=== PATIENT | female | born 1930 | race Caucasian/White ===

== ENCOUNTER 2016-07-21 10:24 | Emergency (ER) | payer MEDICARE, BC ==
--- NOTE | ~2016-07-21 | US84 ---
[id number] [facility]. [facility] [address] [place], [place] [address] [id number] I MR#: [id number] #: [id number] NAME: MEHDI ROTHMAN : 1930 SEX: F STUDY DATE/TIME: 07/23/2016 15:30 UNIT: C2A ROOM: 213 STUDY DESCRIPTION: US LE Veins Complete Raman Stdy Attending Physician: Heber Deshpande M.D. Ordering Physician: Heber Deshpande M.D. Primary Care Physician: Kathya Primary Care Physician MEDICAL IMAGING REPORT This report is preliminary unless electronic signature is present EXAM Bilateral lower extremity venous Doppler date of study 07/23/2016. COMPARISON Prior ultrasound dated 10/17/2014. HISTORY Bilateral leg swelling for several years, chronic history of DVT. PROCEDURE Gillis-scale imaging, color-Doppler flow imaging, and Doppler waveform analysis. FINDINGS On the right, there is nonocclusive thrombus in the common femoral and superficial femoral and popliteal veins. The below-knee tibial veins are patent, but the peroneal vein is occluded. This is slightly improved when compared to the study of 10/17/2014. On the left, there is occlusive thrombus in the superficial femoral vein and below-knee posterior tibial vein, but the remaining left lower extremity deep and superficial veins are normal. The popliteal vein was occluded on the study of June 2014. IMPRESSION There is some occlusive and nonocclusive DVT on the right and some occlusive DVT on the left, though to some degree this is likely chronic. See above for details. Dictated by... Guzman Dwyer M.D. THIS IS AN ELECTRONICALLY VERIFIED REPORT Guzman Dwyer M.D. at 07/24/2016 10:25 AM YEHUDA/florencio TD: 07/23/2016 19:11 JOB #: [id number] MEDICAL IMAGING REPORT Page 1 of 1 COPY
--- NOTE | ~2016-07-21 | DS ---
Unit #: [id number] #: [id number] Patient: MEHDI ROTHMAN [id number] [address] [place], [place] [address] [id number] I MR#: [id number] NAME: MEHDI ROTHMAN. ROOM: 213 Age: 86 Sex: F Admission Date: 07/23/2016 : 1930 Discharge Date: 07/27/2016 Attending Physician: Heber Deshpande M.D. Primary Care Physician: No Primary Care Physician DISCHARGE SUMMARY DISCHARGE DIAGNOSES 1. Fall. 2. Right radial neck fracture. 3. Hypertension. 4. 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 5. Atrial fibrillation. 6. Dementia. 7. Hypothyroidism. HOSPITAL COURSE The patient is an 86-year-old female who presented to [facility] after a fall. She was noted to have a right radial neck fracture on right elbow film. Ankle, foot, pelvis and CT chest imaging were negative. The patient was seen in consultation by Dr. Sullivan who felt the patient was without need for operative intervention. She was placed in a sling and physical therapy and occupational therapy were ordered. The patient did have incidental findings of DVT in both legs. These are chronic and were thought to actually be somewhat improved since studies done in 2015. Given the patient's nonoperative need and Physical Therapy's determination of the need for rehab, the patient is being discharge there now. DISCHARGE MEDICATIONS 1. Amiodarone 200 mg p.o. daily. 2. Ativan 1 mg p.o. daily p.r.n. 3. Norvasc 10 mg p.o. daily. 4. Lopressor 25 mg p.o. daily. 5. Hydrocodone and acetaminophen 5/325 one p.o. q.4 h. p.r.n. moderate to severe pain. 6. Prilosec 20 mg p.o. daily. 7. Synthroid 0.15 mg p.o. daily. 8. Cyanocobalamin 1000 mcg p.o. daily. 9. Hydralazine 50 mg p.o. b.i.d. FOLLOWUP Patient should follow up with Dr. Sullivan in 7 to 10 days. Unit #: [id number] #: [id number] Patient: STEPHANMEHDI Sequeira Dictated by... Gino Boston/kellen TD: 07/27/2016 15:06 JOB #: [id number] DISCHARGE SUMMARY Page 1 of 1 X Randolph Lerner MD X DISCHARGE SUMMARY
--- NOTE | ~2016-07-21 | HP ---
Unit #: [id number] #: [id number] Patient: MEHDI ROTHMAN [id number] [address] [place], [place] [address] [id number] I MR#: [id number] NAME: MEHDI ROTHMAN. ROOM: 213 Age: 86 Sex: F Admission Date: 07/23/2016 : 1930 Attending Physician: Heber Deshpande M.D. Primary Care Physician: No Primary Care Physician HISTORY AND PHYSICAL CHIEF COMPLAINT Fall and right elbow fracture. HISTORY OF PRESENTING ILLNESS Patient is an 86-year-old pleasant lady with a past medical history of dementia, hypertension, afib, COPD, peptic ulcer disease, who presented to [facility] emergency room from assisted living with a chief of fall. Apparently she tripped down and fell on her right side and in the [facility] emergency room initial evaluation showed her having right radial neck fracture. She did not have any rib fractures. She is pleasantly confused, unable to have a coherent conversation. She denies any chest pains, complains of having shortness of breath, denies any fever or chills, cough, cold, denies having any abdominal pain, diarrhea or dysuria. Kindly note most of the history is obtained by reviewing the records and talking to the ER physicians and nurses here. PAST MEDICAL HISTORY 1. History of hypertension. 2. Degenerative joint disease. 3. Peptic ulcer disease. 4. History of abdominal aortic aneurysm. 5. Afib. 6. History of PE and DVT, status post IVC filter placement. 7. Chronic kidney disease. 8. Anemia. 9. Urinary tract infections. 10. History of congestive heart failure with last echocardiogram in 2013 showing an EF of 50% to 55%, chronic diastolic heart failure. 11. Colonic polyps status post right hemicolectomy. 12. Total abdominal hysterectomy and bilateral salpingo-oophorectomy. 13. Cholecystectomy. 14. Appendectomy. ALLERGIES Include NSAIDs, penicillin, sulfa, codeine, aspirin, Coumadin, Lovenox, Flagyl, Dilaudid. HOME MEDICATIONS 1. Norvasc 10 mg p.o. daily. 2. Synthroid 15 mcg p.o. daily. 3. Lorazepam 1 mg daily. Unit #: [id number] #: [id number] Patient: MEHID ROTHMAN 4. Lopressor 25 mg daily. 5. Amiodarone 200 mg daily. 6. Prilosec 20 mg p.o. daily. SOCIAL HISTORY Currently she mentions she is in assisted living, denies any smoking, alcohol, per records lifelong nonsmoker, nonalcoholic. REVIEW OF SYSTEMS Complete review of systems is negative except for what is mentioned in the HPI. FAMILY HISTORY Noncontributory to the current admission. PHYSICAL EXAMINATION VITAL SIGNS: Temperature 97.4, pulse rate 62, respirations 18, blood pressure 197/94. GENERAL: Patient is alert, oriented x3, pleasantly confused. HEENT: Normocephalic and atraumatic. Oral mucosa is moist. NECK: Neck is supple. No JVD. HEART: S1, S2, irregular. CHEST: Bilateral equal air entry, clear to auscultation. ABDOMEN: Soft, nontender. EXTREMITIES: Edema in both the lower extremities. Right upper extremity in a splint. DIAGNOSTIC STUDIES LABORATORY: Glucose 104, BUN 18, creatinine 1.3, sodium 135, potassium 4.3, chloride 103, bicarb 26, bilirubin 2.4, indirect 2.1, direct 0.3. WBC 4.2 but I do not have a CBC from today. I will try to get a CBC and a urinalysis. ASSESSMENT AND PLAN 1. Fall with a right radial neck fracture: Will request orthopedic services to consult to evaluate if she needs any other intervention at this point, p.r.n. analgesics, PT and OT and monitor. 2. Hypertension: Blood pressure is poorly controlled. Will give her p.r.n. hydralazine and monitor. 3. Edema of both the lower extremities: She does have a history of deep venous thromboses in the past. Will check an ultrasound. 4. History of recurrent urinary tract infections: I will check a UA with micro and, if required, will start on antimicrobials. 5. Atrial fibrillation, rate controlled: Will monitor. 6. Dementia. 7. Hypothyroidism. 8. PT and OT. 9. garage manager consult. 10. Further recommendations per hospital course. Dictated by Heber Deshpande M.D. PS/cf Unit #: [id number] #: [id number] Patient: MEHDI ROTHMAN TD: 07/23/2016 15:18 JOB #: [id number] HISTORY AND PHYSICAL Page 1 of 1 X X HISTORY AND PHYSICAL
--- NOTE | ~2016-07-21 | CO ---
Unit #: [id number] #: [id number] Patient: MEHDI ROTHMAN [id number] [address] [place], [place] [address] [id number] I MR#: [id number] NAME: MEHDI ROTHMAN. ROOM: 213 Age: 86 Sex: F Admission Date: 07/23/2016 : 1930 Attending Physician: Heber Deshpande M.D. Primary Care Physician: Primary Care Physician No CONSULTATION REPORT HISTORY OF PRESENT ILLNESS This is an 86-year-old lady, who resides in the assisted living. She has dementia and is unable to give a good history. Evidently, she fell at the assisted living, was complaining of elbow discomfort, was brought to the emergency room at [facility] and was found to have a fracture of her right radial neck. We have been asked to provide orthopedic care for this. PAST MEDICAL HISTORY Her past medical history which is garnered from the chart because she is unable to give a good history, is one of peptic ulcer disease, hypertension, abdominal aortic aneurysm, atrial fibrillation, chronic kidney disease, anemia, history of PE from DVT, urinary tract infections, congestive heart failure. She has had colon polyps removed in the past. PAST SURGICAL HISTORY Her past surgeries include bilateral S and O with abdominal hysterectomy. She has had a cholecystectomy and an appendectomy. ALLERGIES Her allergies are multiple, they include NSAIDs, penicillin, sulfa, codeine, aspirin, Coumadin, Lovenox, Flagyl, and Dilaudid. MEDICATIONS Her medications at the assisted living include lorazepam, Synthroid, Norvasc, amiodarone, Lopressor, and Prilosec. SOCIAL HISTORY She lives in an assisted living with no history of smoking or alcohol. REVIEW OF SYSTEMS We were unable to complete review of systems because of the patient's medical condition. PHYSICAL EXAMINATION GENERAL: Her exam today reveals she is resting comfortably in bed. She is alert, but is somewhat confused. VITAL SIGNS: She is afebrile. Her pulse is 82 and her blood pressure is 116/66. EXTREMITIES: Orthopedically, her right arm is in a splint. Her hand neurovascular exam is intact. We did not remove the splint. IMPRESSION After reviewing her x-ray, she has a mildly angulated right radial neck fracture that we are going to treat nonoperatively with a sling. We will Unit #: [id number] #: [id number] Patient: MEHDI ROTHMAN have them removed the splint and reapplied the sling that is to be kept on at all times, and I will see her in the office in 7 to 10 days for repeat x-rays. Dictated by... Gino Lewis/amanda TD: 07/24/2016 19:33 JOB #: [id number] CONSULTATION REPORT Page 1 of 1 X Asim Sullivan MD X CONSULTATION REPORT
[~2016-07-21 10:24] MED LIST: ACETAMINOPHEN PO; ACETAMINOPHEN650 M1 PO; ALBUTEROL 0.5ML INH; ALPRAZOLAM; ALPRAZOLAM PO; ALPRAZOLAM0.25 MG PO; AMIODARONE PO; ATIVAN PO; CARDIZEM CD PO; CORDARONE200 M1 PO; COUMADIN PO; COUMADIN1 MG PO; DOXYCYCLINE PO; ENOXAPARIN60 MG/0.1 SQ; FERRO-TIME325 MG PO; K-DUR20 ME1 PO; K-DUR20 ME2 PO; KEFLEX500 M1 PO; LASIX; LASIX PO; LASIX20 MG PO; LEVAQUIN PO; LEVAQUIN750 M1 PO; LEVOTHROID100 MC1 PO; LEVOTHROXIN PO; LEVOTHYROXINE150 MCG PO; LEVOXYL150 MCG PO; LORAZEPAM1 MG PO; MACRODANTIN PO; METOPROLOL SUCC25 MG PO; METOPROLOL TAR25 MG PO; NORVASC10 MG PO; PACERONE PO; PACERONE100 MG PO; POTASSIUM GLUCO99 MG PO; PREDNISONE10 MG PO; PREDNISONE10 MG/DOSE PO; PRILOSEC PO; PRILOSEC20 MG PO; PYRIDIUM PO; SYNTHROID0.1 MG PO; TOPROL XL; TOPROL XL PO; VIT B-12 PO; ZESTRIL5 MG PO
[2016-07-21 10:30] LABS: URINE SOURCE CLEAN CATCH
[2016-07-21 10:35] LABS: URINE APPEARANCE CLEAR; URINE BILIRUBIN NEG (NEG); URINE BLOOD NEG (NEG); URINE COLOR YELLOW; URINE GLUCOSE NORM (NORM); URINE KETONE NEG (NEG); URINE LEUKOCYTE ESTERASE 3+ (NEG); URINE NITRATE NEG (NEG); URINE PROTEIN NEG (NEG); URINE SPECIFIC GRAVITY 1.005 (1.003-1.035); URINE UROBILINOGEN NORM (NORM)
[2016-07-21 10:35] LABS: BASOPHIL% 0.7 % (0-2.5); EOSINOPHIL# 0.1 X10e3 (0-0.7); HEMATOCRIT 40.4 % (35.0-45.0); HEMOGLOBIN 13.1 gm/dL (12.0-16.0); LYMPHOCYTE# 1.1 X10e3 (1.0-3.5); LYMPHOCYTE% 25.7 % (17.0-45.0); MEAN CELL VOLUME 95.6 FL (83-96); MEAN CORPUSCULAR HEMOGLOBIN 31.1 PG (28-34); MEAN CORPUSCULAR HGB CONC 32.5 g/dL (30-36); MEAN PLATELET VOLUME 7.4 FL (6.5-11.5); MONOCYTE# 0.4 X10e3 (0-1.0); MONOCYTE% 8.7 % (3.0-12.0); NEUTROPHIL# 2.6 X10e3 (1.5-7.1); NEUTROPHIL% 62.9 % (40-75); PLATELET COUNT 132 X10e3 (140-420); RED BLOOD COUNT 4.22 X10e (3.90-5.30); RED CELL DISTRIBUTION WIDTH 15.8 % (11.0-15.5); WHITE BLOOD COUNT 4.2 X10e3 (4.0-10.5)
[2016-07-21 10:41] LABS: DIFF IND NO
[2016-07-21 10:43] LABS: CULTURE INDICATED? YES; URBCS1 AUWI 0-2 /[HPF] (0-2); URINE BACTERIA AUWI NEG (NEGATIVE); URINE SQUAMOUS EPITHELIAL CELL OCC /[HPF]
[2016-07-21 11:00] LABS: ALBUMIN SERUM 3.8 g/dL (3.5-5.0); BILIRUBIN, DIRECT 0.3 mg/dL (0.0-0.2); BILIRUBIN,INDIRECT 2.1 mg/dL (0.0-0.9); BILIRUBIN,TOTAL 2.4 mg/dL (0.2-2.0); BUN/CREATININE RATIO 13.84; CALCIUM SERUM 9.3 mg/dL (8.4-10.2); CREATININE SERUM 1.3 mg/dL (0.6-1.4); GLOM FILT RATE Estimated 37.1 mL/min (>60); POTASSIUM 4.3 mmol/L (3.5-5.1); PROTEIN TOTAL SERUM 6.7 g/dL (6.0-8.3)
[2016-07-21] MEDS ORDERED: SYNTHROID0.05 MG PO (14:23)
[2016-07-21] MEDS ORDERED: ATIVAN PO (14:25)
[2016-07-21] MEDS ORDERED: LOPRESSOR PO (14:25)
[2016-07-21] MEDS ORDERED: AMIODARONE HCL100 MG PO (14:26)
[2016-07-21] MEDS ORDERED: PRILOSEC PO (14:26)
[2016-07-21] MEDS ORDERED: NORVASC10 MG PO (14:26)
[2016-07-24 05:45] LABS: HEMATOCRIT 41.9 % (35.0-45.0); HEMOGLOBIN 13.5 gm/dL (12.0-16.0); MEAN CELL VOLUME 96.7 FL (83-96); MEAN CORPUSCULAR HEMOGLOBIN 31.2 PG (28-34); MEAN CORPUSCULAR HGB CONC 32.2 g/dL (30-36); MEAN PLATELET VOLUME 7.8 FL (6.5-11.5); RED BLOOD COUNT 4.33 X10e (3.90-5.30); RED CELL DISTRIBUTION WIDTH 16.2 % (11.0-15.5); WHITE BLOOD COUNT 6.2 X10e3 (4.0-10.5)
[2016-07-24 06:41] LABS: BUN/CREATININE RATIO 13.07; CALCIUM SERUM 9.4 mg/dL (8.4-10.2); CREATININE SERUM 1.3 mg/dL (0.6-1.4); GLOM FILT RATE Estimated 37.1 mL/min (>60); POTASSIUM 4.4 mmol/L (3.5-5.1)
[2016-07-24 13:59] LABS: URINE APPEARANCE CLOUDY; URINE BILIRUBIN NEG (NEG); URINE BLOOD NEG (NEG); URINE COLOR DK YELLOW; URINE GLUCOSE NEG (NEG); URINE KETONE NEG (NEG); URINE LEUKOCYTE ESTERASE 2+ (NEG); URINE NITRATE NEG (NEG); URINE PROTEIN TRACE (NEG); URINE SPECIFIC GRAVITY 1.018 (1.003-1.035)
[2016-07-24 14:01] LABS: URINE BACTERIA AUWI 2+ (NEGATIVE); URINE SQUAMOUS EPITHELIAL CELL FEW /[HPF]; UWBCS1 AUWI 50-100 (0-5)
[2016-07-25 07:19] LABS: BUN/CREATININE RATIO 18.33; CALCIUM SERUM 9.3 mg/dL (8.4-10.2); CREATININE SERUM 1.2 mg/dL (0.6-1.4); GLOM FILT RATE Estimated 40.9 mL/min (>60); POTASSIUM 4.3 mmol/L (3.5-5.1)
== END 2016-07-21 15:43 | disposition home or self-care (01) ==
LOC: CED 10:24
PROVIDERS: Internal Medicine; Nurse Practitioner
DX: S52.132A Displaced fracture of neck of left radius, initial encounter for closed fracture (principal); F03.90 Unspecified dementia, unspecified severity, without behavioral disturbance, psychotic disturbance, mood disturbance, and anxiety; I13.0 Hypertensive heart and chronic kidney disease with heart failure and stage 1 through stage 4 chronic kidney disease, or unspecified chronic kidney disease; I50.32 Chronic diastolic (congestive) heart failure; I82.503 Chronic embolism and thrombosis of unspecified deep veins of lower extremity, bilateral; I48.91 Unspecified atrial fibrillation; K21.9 Gastro-esophageal reflux disease without esophagitis; Z90.49 Acquired absence of other specified parts of digestive tract; Z90.710 Acquired absence of both cervix and uterus; Z88.0 Allergy status to penicillin; Z88.6 Allergy status to analgesic agent; Z88.8 Allergy status to other drugs, medicaments and biological substances; Z88.2 Allergy status to sulfonamides; Z86.010 Personal history of colon polyps; Z86.711 Personal history of pulmonary embolism; Z87.11 Personal history of peptic ulcer disease; W01.0XXA Fall on same level from slipping, tripping and stumbling without subsequent striking against object, initial encounter; Y93.9 Activity, unspecified; Y92.099 Unspecified place in other non-institutional residence as the place of occurrence of the external cause; N18.9 Chronic kidney disease, unspecified
CPT/HCPCS: 36415; 80048; 80076; 81003; 85025; 85027; 87086; 93970; 94760; 96374; 97110; 97116; 97162; 97167; 97530; 97535; 99283; G8978-GP; G8979-GP; G8980-GP; G8987-GO; G8988-GO; J0360; J2405; J3420

== ENCOUNTER 2016-07-23 04:00 | Inpatient (IN) | payer MEDICARE, BC ==
--- NOTE | ~2016-07-23 | CT57 ---
[facility] A Service of [facility] & [facility] RADIOLOGY TEXT RESULTS PATIENT: MEHDI ROTHMAN LOCATION: SED : 30 UNIT #: [id number] AGE: [address]: Skinny Flores MD SEX: F ORDER DR: [id number] [address] [address] [id number] E MR#: [id number] Acc #: [id number] NAME: MEHDI ROTHMAN : 1930 SEX: F STUDY DATE/TIME: 07/23/2016 4:33 UNIT: SED ROOM: STUDY DESCRIPTION: CT Chest Wo Cont Attending Physician: Skinny Flores M.D. Ordering Physician: Skinny Flores M.D. Primary Care Physician: Primary Care Physician No MEDICAL IMAGING REPORT This report is preliminary unless electronic signature is present. EXAM CT chest, noncontrast, 07/23/2016 HISTORY 86-year-old female in the ED with right-side chest pain after fall from bed at assisted living facility [facility] prior to arrival. TECHNIQUE CT examination of the chest without IV contrast. The examination is limited by patient motion and restricted positioning. This CT examination was performed with one or more of the following radiation dose reduction techniques: automatic exposure control, adjustment of mA and/or kV according to patient size, and iterative reconstruction. FINDINGS There is no evidence of acute traumatic thoracic injury. No acute fracture of ribs, sternum or thoracic spine is identified. There is no pneumothorax. Moderate cardiomegaly, bibasilar scarring and atelectasis and small right pleural effusion are noted. Limited images through the uppermost abdomen show an infrarenal abdominal aortic aneurysm measuring up to 5.1 cm, unchanged since 02/12/2016. The abdominal aorta is incompletely included on this chest CT examination. IMPRESSION 1. No evidence of acute traumatic thoracic injury. No acute fracture of ribs, sternum or thoracic spine is demonstrated. No pneumothorax. 2. Cardiomegaly. Small right pleural effusion. 3. Scarring and atelectasis in the posterior lung bases. 4. Partially visualized infrarenal abdominal aortic aneurysm measuring at least 5.1 cm without significant change since 02/12/2016. [facility] A Service of [facility] & [facility] RADIOLOGY TEXT RESULTS PATIENT: MEHDI ROTHMAN LOCATION: [facility] : 30 UNIT #: [id number] AGE: [address]: Skinny Flores MD SEX: F ORDER DR: Dictated by... Rich Augustine M.D. THIS IS AN ELECTRONICALLY VERIFIED REPORT Rich Augustine M.D. at 07/28/2016 9:15 AM FRANCE/leanne TD: 07/23/2016 06:34 JOB #: [id number] MEDICAL IMAGING REPORT Page 1 of 1
--- NOTE | ~2016-07-23 | CR94 ---
[facility]. [facility] A Service of [facility] & [facility] RADIOLOGY TEXT RESULTS PATIENT: MEHDI ROTHMAN LOCATION: SED : 30 UNIT #: [id number] AGE: [address]: Skinny Flores MD SEX: F ORDER DR: [id number] [place] [id number] E MR#: [id number] Acc #: [id number] NAME: MEHDI ROTHMAN : 1930 SEX: F STUDY DATE/TIME: 07/23/2016 4:49 UNIT: SED ROOM: STUDY DESCRIPTION: CR Elbow Min 3 Views Rt Attending Physician: Skinny Flores M.D. Ordering Physician: Skinny Flores M.D. Primary Care Physician: Primary Care Physician No MEDICAL IMAGING REPORT This report is preliminary unless electronic signature is present. EXAM Right elbow 07/23/2016 HISTORY 86-year-old female in the ED with ankle pain after fall from bed at assisted living [facility] prior to arrival. TECHNIQUE 3 view right elbow series. FINDINGS The examination shows a nondisplaced, slightly angulated transverse fracture across the neck of the radius at the elbow. No other fracture is demonstrated. No visible joint effusion. IMPRESSION Right radial neck fracture. Dictated by... Rich Augustine M.D. THIS IS AN ELECTRONICALLY VERIFIED REPORT Rich Augustine M.D. at 07/28/2016 9:15 AM FRANCE/leanne TD: 07/23/2016 06:33 JOB #: [id number] MEDICAL IMAGING REPORT Page 1 of 1
--- NOTE | ~2016-07-23 | CR127 ---
[facility]. [facility] A Service of [facility] & [facility] RADIOLOGY TEXT RESULTS PATIENT: MEHDI ROTHMAN LOCATION: SED : 30 UNIT #: [id number] AGE: [address]: Skinny Flores MD SEX: F ORDER DR: [id number] [place] [id number] E MR#: [id number] Acc #: [id number] NAME: MEHDI ROTHMAN : 1930 SEX: F STUDY DATE/TIME: 07/23/2016 4:49 UNIT: SED ROOM: STUDY DESCRIPTION: CR Foot Complete Min 3 View Rt Attending Physician: Skinny Flores M.D. Ordering Physician: Skinny Flores M.D. Primary Care Physician: Primary Care Physician No MEDICAL IMAGING REPORT This report is preliminary unless electronic signature is present. EXAM Right foot series 07/23/2016 HISTORY 86-year-old female in the ED with right foot and ankle pain after fall from bed tonight at assisted living facility. TECHNIQUE Three-view right foot series. FINDINGS Diffuse soft tissue swelling is seen throughout the foot and ankle. No fracture, dislocation or other acute osseous abnormality is identified. IMPRESSION 1. No acute osseous abnormality. 2. Diffuse soft tissue swelling. Dictated by... Rich Augustine M.D. THIS IS AN ELECTRONICALLY VERIFIED REPORT Rich Augustine M.D. at 07/28/2016 9:15 AM Bandar TD: 07/23/2016 06:30 JOB #: [id number] MEDICAL IMAGING REPORT Page 1 of 1
--- NOTE | ~2016-07-23 | CT107 ---
[facility] A Service of [facility] & [facility] RADIOLOGY TEXT RESULTS PATIENT: MEHDI ROTHMAN LOCATION: SED : 30 UNIT #: [id number] AGE: [address]: Skinny Flores MD SEX: F ORDER DR: [id number] [place] [id number] E MR#: [id number] Acc #: [id number] NAME: MEHDI ROTHMAN : 1930 SEX: F STUDY DATE/TIME: 07/23/2016 4:37 UNIT: SED ROOM: STUDY DESCRIPTION: CT Pelvis Wo Cont Attending Physician: Skinny Flores M.D. Ordering Physician: Skinny Flores M.D. Primary Care Physician: Primary Care Physician No MEDICAL IMAGING REPORT This report is preliminary unless electronic signature is present. EXAM CT pelvis 07/23/2016 HISTORY 86-year-old female in the ED complaining of right-side pelvis and hip pain after fall from bed at assisted living facility [facility] prior to arrival. TECHNIQUE Thin-section axial CT images were obtained through the pelvis and hips. Targeted, multiplanar reconstructed images were obtained through each hip. FINDINGS No acute fracture of pelvis, sacrum or hips is identified. Demineralization suggests osteoporosis. No hematoma is seen in the soft tissues surrounding the pelvis and hips or within the pelvis. IMPRESSION 1. No evidence of acute fracture involving the pelvis, sacrum or hips. 2. Demineralization suggesting osteoporosis. 1. Dictated by... Rich Augustine M.D. THIS IS AN ELECTRONICALLY VERIFIED REPORT Rich Augustine M.D. at 07/28/2016 9:15 AM FRANCE/celena TD: 07/23/2016 06:32 JOB #: [id number] MEDICAL IMAGING REPORT Page 1 of 1
--- NOTE | ~2016-07-23 | CR21 ---
[facility]. [facility] A Service of [facility] & [facility] RADIOLOGY TEXT RESULTS PATIENT: MEHDI ROTHMAN LOCATION: SED : 30 UNIT #: [id number] AGE: [address]: Skinny Flores MD SEX: F ORDER DR: [id number] [address] [address] [id number] E MR#: [id number] Acc #: [id number] NAME: MEHDI ROTHMAN : 1930 SEX: F STUDY DATE/TIME: 07/23/2016 4:49 UNIT: SED ROOM: STUDY DESCRIPTION: CR Ankle Min 3 Views Rt Attending Physician: Skinny Flores M.D. Ordering Physician: Skinny Flores M.D. Primary Care Physician: Primary Care Physician No MEDICAL IMAGING REPORT This report is preliminary unless electronic signature is present. EXAM Right ankle 07/23/2016. HISTORY 86-year-old female in the ED after fall from bed at assisted living [facility] prior to arrival. TECHNIQUE Three-view right ankle series. FINDINGS Extensive soft tissue swelling is visible throughout the ankle and lower leg. No fracture, dislocation or other acute osseous abnormality. IMPRESSION Soft tissue swelling. Right ankle series otherwise negative. Dictated by... Rich Augustine M.D. THIS IS AN ELECTRONICALLY VERIFIED REPORT Rich Augustine M.D. at 07/28/2016 9:15 AM Bandar TD: 07/23/2016 06:31 JOB #: [id number] MEDICAL IMAGING REPORT Page 1 of 1
[~2016-07-23 04:00] MED LIST changes: +AMIODARONE HCL100 MG PO; +LOPRESSOR PO; +SYNTHROID0.05 MG PO
== END 2016-07-27 18:49 | DRG 563 ==
LOC: SED 04:00 → C2A 14:22
DX: S52.131A Displaced fracture of neck of right radius, initial encounter for closed fracture (principal); F03.90 Unspecified dementia, unspecified severity, without behavioral disturbance, psychotic disturbance, mood disturbance, and anxiety; I13.0 Hypertensive heart and chronic kidney disease with heart failure and stage 1 through stage 4 chronic kidney disease, or unspecified chronic kidney disease; I50.32 Chronic diastolic (congestive) heart failure; I82.513 Chronic embolism and thrombosis of femoral vein, bilateral; I82.543 Chronic embolism and thrombosis of tibial vein, bilateral; W19.XXXA Unspecified fall, initial encounter; I48.91 Unspecified atrial fibrillation; J44.9 Chronic obstructive pulmonary disease, unspecified; Z87.11 Personal history of peptic ulcer disease; M19.90 Unspecified osteoarthritis, unspecified site; N18.9 Chronic kidney disease, unspecified; Z86.711 Personal history of pulmonary embolism; Z90.710 Acquired absence of both cervix and uterus; Z90.49 Acquired absence of other specified parts of digestive tract; I71.4 Abdominal aortic aneurysm, without rupture; Z88.6 Allergy status to analgesic agent; Z88.0 Allergy status to penicillin; Z88.2 Allergy status to sulfonamides; R60.9 Edema, unspecified; Z86.010 Personal history of colon polyps; E53.8 Deficiency of other specified B group vitamins; N18.3 Chronic kidney disease, stage 3 (moderate)
CPT/HCPCS: 36415; 71250; 72192; 73080; 73610; 73630; 76376; 80048; 80076; 81003; 85025; 85027; 87086; 93970; 94760; 96361; 96374; 96376; 97110; 97116; 97162; 97167; 97530; 97535; 99283; 99285; G8978-GP; G8979-GP; G8980-GP; G8987-GO; G8988-GO; J0360; J2270; J2405; J3420

== ENCOUNTER → 2016-07-29 | Outpatient (CLI) | payer MEDICARE, BC ==
--- NOTE | ~2016-07-29 | CT4 ---
[facility] A Service of [facility] RADIOLOGY TEXT RESULTS PATIENT: MEHDI ROTHMAN LOCATION: RUST : 30 UNIT #: [id number] AGE: [address]: Kye Bello MD SEX: F ORDER DR: [id number] [address] [address] [id number] O MR#: [id number] Acc #: [id number] NAME: MEHDI ROTHMAN : 1930 SEX: F STUDY DATE/TIME: 07/29/2016 17:04 UNIT: RUST ROOM: STUDY DESCRIPTION: CT Abd and Pelv Wo Cont Attending Physician: Kye Bello M.D. Referring Physician: Kye Bello M.D. Ordering Physician: Physician Non-Staff Primary Care Physician: Kye Bello M.D. MEDICAL IMAGING REPORT This report is preliminary unless electronic signature is present. EXAM CT abdomen and pelvis without contrast. INDICATION Ileus. Abdominal aortic aneurysm follow up. PROCEDURE Unenhanced CT of the abdomen and pelvis. This CT exam was performed with one or more of the following radiation dose reduction techniques: automatic exposure control, adjustment of mA and/or kV according to patient size, and iterative reconstruction. COMPARISON STUDIES 05/10/2016 FINDINGS There is a moderate-sized right pleural effusion with atelectasis in the right lower lobe, slightly increased. There is also a small left pleural effusion with left basilar atelectasis. Mild cardiomegaly. Liver, spleen, adrenal glands, pancreas show no acute abnormality. Previous cholecystectomy. Bowel loops are nondilated. Moderately large colonic gas burden. The patient appears to be post right hemicolectomy. Correlate with operative history. There is an IVC filter in place. Atherosclerotic irregularity throughout the abdominal aorta. There is tortuosity and fusiform aneurysmal dilation of the infrarenal aorta. The aorta measures approximately 3.7 cm along the superior extent of the [facility] A Service [facility] RADIOLOGY TEXT RESULTS PATIENT: MEHDI ROTHMAN LOCATION: [place] : 30 UNIT #: [id number] AGE: [address]: Kye Bello MD SEX: F ORDER DR: dilation and approximately 4.1 cm in diameter more distally. Measurements are very similar to the previous study. PELVIS WITHOUT CONTRAST: Previous hysterectomy. No pelvic mass. No aggressive appearing bone lesion. Low-attenuation renal lesions are very similar and are favored to represent benign cysts. 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 IMPRESSION 1. No acute findings. No evidence for bowel obstruction. 2. Aneurysmal dilation of the infrarenal abdominal aorta, as above measurements are very similar to the prior. 3. Increasing pleural effusions compared with the previous study. 4. Moderately large colonic gas burden. Dictated by... Fuentes Jimenez M.D. THIS IS AN ELECTRONICALLY VERIFIED REPORT Fuentes Jimenez M.D. at 08/02/2016 7:41 AM NEHA/zohaib TD: 07/30/2016 09:42 JOB #: [id number] MEDICAL IMAGING REPORT Page 1 of 1
== END | disposition home or self-care (01) ==
LOC: SCT 15:26
DX: K56.7 Ileus, unspecified (principal); I72.2 Aneurysm of renal artery; J90 Pleural effusion, not elsewhere classified
CPT/HCPCS: 74176